=== PATIENT | male | born 1970 | race Asian ===

== ENCOUNTER 2024-07-30 11:00 | Oncology outpatient (recurring) (ONCR) | payer OTHER, SELFPAY ==
[2024-07-28 11:21] LABS: Basophils # 0.1 10^3/uL (0.0-0.1); Basophils % 0.9 %; Eosinophils # 0.2 10^3/uL (0.0-0.8); Eosinophils % 3.2 %; Hematocrit 25.3 % (37-53); Lymphocytes # 2.1 10^3/uL (0.8-4.8); Lymphocytes % 30.2 %; Mean Corpuscular HGB Conc 31.6 g/dL (30-55); Mean Corpuscular Hemoglobin 23.6 pg (27-33); Mean Corpuscular Volume 74.6 fl (82-101); Monocytes # 0.5 10^3/uL (0.2-0.9); Monocytes % 6.9 %; Neutrophils # 3.99 10^3/uL (1.8-7.7); Neutrophils % 58.2 %; Nucleated Red Blood Cells # 0.4 /100WBC; Nucleated Red Blood Cells % 6.1 %; Platelet Count 245 10^3/cmm (157-399); Red Blood Count 3.39 10^6/uL (3.85-5.65); Red Cell Distribution Width 17.5 % (12.1-15.1); Reticulocyte % 1.7 % (0.5-2.0); White Blood Count 6.85 10^3/uL (3.29-11.43)
[2024-07-28 11:57] LABS: LAB Peripheral Smear Sent for Review
[2024-07-28 12:01] LABS: Slide Review Slide Review Perform
[2024-07-28 12:30] LABS: Albumin Level 4.6 g/dL (3.5-5.2); Alkaline Phosphatase 69 U/L (40-130); Anion Gap 17.3 (5-19); Blood Urea Nitrogen 19 mg/dL (6-20); Calcium 8.8 mg/dL (8.5-10.5); Carbon Dioxide 24 mmol/L (22-29); Chloride 104 mmol/L (98-107); Creatinine Clr Calc Pharmacy 77.8093; Ferritin 300 ng/mL (30-400); Globulin 2.3 g/dL (1.3-4.6); Glomerular Filtration Rate 69.5 mL/min (90-130); Glucose 95 mg/dL (65-115); Iron 134 ug/dL (59-158); Osmolality Calculated 294 mOsm/kg (285-295); Percent Saturation 83.2 % (20-50); Potassium 4.3 mmol/L (3.5-5.1); Sodium 141 mmol/L (136-145); Thyroid Stimulating Hormone 1.46 uIU/mL (0.27-4.20); Total Bilirubin 2.7 mg/dL (0.15-1.2); Total Iron Binding Capacity 161 mcg/dl; Total Protein 6.9 g/dL (6.6-8.7); Unsaturated Iron Binding 27 ug/dL (112-347)
[2024-07-28 12:31] LABS: Lactate Dehydrogenase 260 U/L (135-225)
[2024-07-28 12:42] LABS: Alanine Aminotransferase < 5 U/L (0-41); Aspartate Amino Transferase 5 U/L (0-40)
[2024-08-07 01:30] LABS: HPLC Confirms; Hemoglobin 7.7 g/dL (13.2-17.1); Hemoglobinopathy Ferritin 170 ng/mL (38-380); Hemoglobinopathy MCH 22.6 pg (27.0-33.0); Hemoglobinopathy MCHC 28.5 g/dL (32.0-36.0); Hemoglobinopathy MCV 79.2 fL (80.0-100.0); Hemoglobinopathy RDW 17.4 % (11.0-15.0); Red Blood Cell Count 3.41 Mill/uL (4.20-5.80)
== END 2024-08-10 23:59 | disposition home or self-care (01) ==
PROVIDERS: Family Provider Internal Medicine; PCP Internal Medicine; Visit Provider Internal Medicine Medical Oncology
DX: D64.9 Anemia, unspecified (principal); Z53.9 Procedure and treatment not carried out, unspecified reason
CPT/HCPCS: 36415; 80053; 82728; 83010; 83020; 83540; 83550; 83615; 84443; 85014; 85018; 85025; 85041; 85045; 86880

== ENCOUNTER 2024-12-07 09:12 | Oncology outpatient (recurring) (ONCR) | payer OTHER, SELFPAY ==
[2024-12-07 09:44] LABS: Basophils % 0.7 %; Eosinophils # 0.4 10^3/uL (0.0-0.8); Eosinophils % 7.3 %; Hematocrit 26.7 % (37-53); Lymphocytes # 2.1 10^3/uL (0.8-4.8); Lymphocytes % 38.2 %; Mean Corpuscular Hemoglobin 21.9 pg (27-33); Monocytes # 0.3 10^3/uL (0.2-0.9); Monocytes % 6.1 %; Neutrophils # 2.62 10^3/uL (1.8-7.7); Neutrophils % 46.8 %; Nucleated Red Blood Cells # 0.6 /100WBC; Nucleated Red Blood Cells % 10.4 %; Platelet Count 237 10^3/cmm (157-399); Red Blood Count 3.66 10^6/uL (3.85-5.65); Red Cell Distribution Width 17.2 % (12.1-15.1)
[2024-12-07 10:04] LABS: Alanine Aminotransferase 24 U/L (0-41); Albumin Level 4.1 g/dL (3.5-5.2); Alkaline Phosphatase 82 U/L (40-130); Anion Gap 13.5 (5-19); Aspartate Amino Transferase 19 U/L (0-40); Blood Urea Nitrogen 14 mg/dL (6-20); Calcium 8.7 mg/dL (8.5-10.5); Carbon Dioxide 24 mmol/L (22-29); Chloride 109 mmol/L (98-107); Globulin 2.6 g/dL (1.3-4.6); Glomerular Filtration Rate 100.4 mL/min (90-130); Glucose 162 mg/dL (65-115); Lactate Dehydrogenase 224 U/L (135-225); Osmolality Calculated 298 mOsm/kg (285-295); Potassium 4.5 mmol/L (3.5-5.1); Sodium 142 mmol/L (136-145); Total Protein 6.7 g/dL (6.6-8.7)
[2024-12-07 10:11] LABS: Slide Review Slide Review Perform
== END 2024-12-11 23:59 | disposition home or self-care (01) ==
PROVIDERS: Family Provider Internal Medicine; PCP Internal Medicine; Visit Provider Internal Medicine Hematology & Oncology
DX: D56.0 Alpha thalassemia (principal)
CPT/HCPCS: 36415; 80053; 83010; 83615; 85025

== ENCOUNTER → 2024-12-28 12:28 | Outpatient (BNVA) | payer OTHER, SELFPAY | PROVIDERS: Family Provider Internal Medicine; PCP Internal Medicine; Visit Provider Internal Medicine Cardiovascular Disease | DX: R07.9 Chest pain, unspecified (principal) | CPT/HCPCS: 93005 ==

== ENCOUNTER 2025-03-01 07:47 | Outpatient (CLI) | payer OTHER, SELFPAY ==
--- NOTE | 2025-03-01 07:57 | USCV_ITS ---
HaoabdullahiToshia Age: 54 Gender: M : 1970 Exam Date: 03/01/2025 08:10 Ordering Phys: Agustin Oneil MD ([email or web address]) Technologist: Exam Location: [facility] [place]: sob BP: 140 / 76 HR: 65 Rhythm: Sinus Technical Quality: Adequate MEASUREMENTS (Male / Female) Normal Values 2D ECHO LV Diastolic Diameter PLAX 5.2 cm 4.2 - 5.9 / 3.9 - 5.3 cm IVS Diastolic Thickness 1.2 cm 0.6 - 1.0 / 0.6 - 0.9 cm IVS Systolic Thickness 1.9 cm LVPW Diastolic Thickness 1.4 cm 0.6 - 1.0 / 0.6 - 0.9 cm LVPW Systolic Thickness 1.7 cm LVOT Diameter 2.6 cm LV Ejection Fraction 2D Teich 66.6 % LV Ejection Fraction MOD 4C 70.7 % LV Ejection Fraction MOD 2C 69.2 % LV Ejection Fraction 2C AL 69.4 % LA Diameter 4.3 cm RA Systolic Volume 4C AL 60.5 ml RA Systolic Volume 4C MOD 59.6 ml Aorta at Sinotubular Diameter 2.8 cm IVC Diameter 1.9 cm M-MODE LA Ao Ratio MM 1.4 AV Cusp Separation MM 2.2 cm DOPPLER AV Peak Velocity 164.0 cm/s LVOT Peak Velocity 102.0 cm/s AV Area Cont Eq vti 3.9 cm squared AV Area Cont Eq pk 3.4 cm squared MV Peak Velocity 123.0 cm/s MV Area PHT 3.6 cm squared Mitral E to A Ratio 1.1 TV Peak Velocity 270.5 cm/s TR Peak Velocity 322.0 cm/s TR Peak Gradient 41.5 mmHg TV Peak E Velocity 108.0 cm/s PV Peak Velocity 162.0 cm/s FINDINGS Left Ventricle Normal left ventricular size and systolic function, EF 69%. No regional wall motion abnormalities. . Right Ventricle The right ventricle is normal in size and function. Right Atrium The right atrium is normal in size. Left Atrium Mildly increased left atrial size. Mitral Valve No gross abnormalities noted Aortic Valve No gross abnormalities noted Tricuspid Valve No gross abnormalities noted Pulmonic Valve No gross abnormalities noted Pericardium Normal pericardium without effusion. Aorta Normal aortic annulus size. IVC Normal inferior vena cava. CONCLUSIONS Normal left ventricular size and systolic function, EF 69%. No regional wall motion abnormalities. . Mildly increased left atrial size. No gross valvular abnormalities There is no pericardial effusion. There are no intracardiac masses. Compared to the study from 05/06/2014, there may not be significant change Dr Chuckie Rucker MD [facility] (Electronically Signed) Final Date: 02 March 2025 19:57 S
== END 2025-03-01 07:48 | disposition home or self-care (01) ==
LOC: RAD 07:50
PROVIDERS: PCP Family Medicine; Visit Provider Internal Medicine Cardiovascular Disease
DX: R06.02 Shortness of breath (principal); I51.7 Cardiomegaly
CPT/HCPCS: 93306